=== PATIENT | male | born 1925 | race Caucasian/White ===

== ENCOUNTER → 2016-05-20 | Day surgery (SDC) | payer MEDICARE ==
[~2016-05-20] MED LIST: ADVAIR 2501 DISK W/D; AMLODIPINE BESYL5 MG PO; ASPIRIN81 M1 PO; ASPIRIN81 M2 PO; ASPIRIN81 MG PO; COMBIVENT INH14.7 GM; COMBIVENT RESPIM4 GM IH; COMBIVENT U/D3 ML INH; COMBIVENT14.7 GM INH; DYAZIDE 371 CAP 37.5 PO; FLOMAX0.4 M1 PO; IRON 65 MG; IRON325 ( 652 PO; LEVOTHYROXINE75 MCG PO; LOPRESSOR PO; METOPROLOL SUCC25 MG PO; METOPROLOL TART25 MG PO; MULTAQ400 M1 PO; MULTAQ400 MG PO; PYRIDIUM100 MG PO; SEREVENT D50 MCG/DIS PO; SYNTHROID75 MCG PO; TRIAMTERENE-HCT1 TA6 PO; TRIAMTERENE-HCT1 TA8 PO; VITAMIN B-12250 MCG PO; VITAMIN B12 DAILY; VITAMIN C DAILY; VITAMIN C100 MG PO; ZYLOPRIM100 MG PO
--- NOTE | ~2016-05-20 | OR ---
Unit #: [id number] #: [id number] Patient: SELMA ORNELAS [id number] [address] [place], [place] [address] [id number] MR#: [id number] NAME: SELMA ORNELAS. ROOM: Date of Procedure: 05/20/2016 Admission Date: 05/20/2016 Surgeon: Efren Villagomez M.D. : 1925 Attending Physician: Efren Villagomez M.D. Referring Physician: Efren Villagomez M.D. Primary Care Physician: Lilian Nava A.P.R.N. 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 PROCEDURES PERFORMED Cystoscopy, urethral dilation, Councill catheter placement. ANESTHESIA General. INDICATIONS FOR PROCEDURE This 89-year-old man with a history of recurrent high-grade bladder cancer, status post BCG with no recent evidence of disease on maintenance therapy, did require cystoscopy and fulguration at [facility] last August, but has otherwise done well until, inability to place a cystoscope on most recent followup. DESCRIPTION OF PROCEDURE The patient was given satisfactory general anesthesia and preoperative antibiotics. He was positioned in dorsal lithotomy. The genitalia were prepped and draped. The 17-Cypriot cystoscope was introduced with the 30-degree lens and video. The anterior urethra was normal up to the short-segment bulbar membranous stricture, which was red and very fibrotic with no viable mucosa. An attempt to pass a guidewire was unsuccessful. While asking for a Pollack catheter, I was able with gentle force to place the beak of the 17-Cypriot scope in the correct direction to open the stricture. Once in the bladder, after emptying the urine, the bladder was examined with 30 and 70 degree lenses and was wonderfully well healed in all directions notable only for smooth scarring and normal symmetric orifices. There were no new lesions or suspicious areas or even focal hypervascularity. At this point, I left only a guidewire and advanced S-dilators sizes 18 and 20 very easily, after which I then placed a 22-Cypriot cystoscope sheath with its obturator alongside of the guidewire. That dilated easily also, but seem to be the maximum appropriate dilation. I looked again with the 19-Cypriot scope and showed that rather than a smooth dilation, Unit #: [id number] #: [id number] Patient: SELMA ORNELAS the stricture had more or less torn superficially at the 12 o'clock position almost similar to an urethrotomy, but more shallowly. A 20-Cypriot Councill catheter was snugly advanced through this into the bladder to complete the procedure. The patient will be discharged to have his catheter removed in 1 week and will keep continue 3-month surveillance cystoscopy followup, possibly with continued maintenance BCG at that point. Dictated by... aNm Rodriguez/jasbir TD: 05/21/2016 05:06 JOB #: [id number] CC: Kedar Smith M.D. OPERATIVE REPORT X Efren Villagomez MD X PROCEDURE OPERATIVE NOTE
--- NOTE | ~2016-05-20 | EKG ---
PATIENT: SELMA ORNELAS UNIT #: [id number] Ventricular Rate: 56 BPM Atrial Rate: 56 BPM P-R Interval: 250 ms QRS Duration: 110 ms Q-T Interval: 488 ms QTC Calculation(Bezet): 470 ms P [place]: -22 degrees Calculated R [place]: -29 degrees Calculated T [place]: 106 degrees Diagnosis Line: Sinus bradycardia with 1st degree A-V block Diagnosis Line: ST and T wave abnormality, consider anterolateral Diagnosis Line: ischemia Diagnosis Line: Prolonged QT Diagnosis Line: Abnormal ECG Diagnosis Line: When compared with ECG of 20-AUG-2015 12:00, Diagnosis Line: No significant change was found Diagnosis Line: Confirmed by BRAD AGARWAL MD ([id number]) on 05/23/2016 Diagnosis Line: 7:21:50 AM INTERPRETING MD: ANY PERAZA
[2016-05-20 12:11] LABS: HEMOGLOBIN 12.4 gm/dL (13.0-16.0); MEAN CELL VOLUME 85.8 FL (83-96); MEAN CORPUSCULAR HEMOGLOBIN 28.1 PG (28-34); MEAN CORPUSCULAR HGB CONC 32.7 g/dL (30-36); MEAN PLATELET VOLUME 7.8 FL (6.5-11.5); RED BLOOD COUNT 4.43 X10e (3.90-5.60); RED CELL DISTRIBUTION WIDTH 16.8 % (11.0-15.5); WHITE BLOOD COUNT 7.8 X10e3 (4.0-10.5)
[2016-05-20 12:39] LABS: BLOOD UREA NITROGEN 26 mg/dL (9-23); BUN/CREATININE RATIO 21.66; CALCIUM SERUM 9.4 mg/dL (8.4-10.2); CARBON DIOXIDE 28 mmol/L (22-31); CHLORIDE 103 mmol/L (100-111); CREATININE SERUM 1.2 mg/dL (0.6-1.4); GLOM FILT RATE Estimated ABOVE60 mL/min (>60); GLUCOSE FASTING 97 mg/dL (70-110); POTASSIUM 3.8 mmol/L (3.5-5.1); SODIUM 139 mmol/L (135-145)
== END | disposition home or self-care (01) ==
LOC: CSUR 11:32
PROVIDERS: Urology
DX: N35.9 Urethral stricture, unspecified (principal); I10 Essential (primary) hypertension; J44.9 Chronic obstructive pulmonary disease, unspecified; Z85.51 Personal history of malignant neoplasm of bladder; Z92.3 Personal history of irradiation; Z85.118 Personal history of other malignant neoplasm of bronchus and lung; Z85.46 Personal history of malignant neoplasm of prostate; Z86.73 Personal history of transient ischemic attack (TIA), and cerebral infarction without residual deficits; Z88.5 Allergy status to narcotic agent; Z79.82 Long term (current) use of aspirin; Z79.899 Other long term (current) drug therapy; Z90.89 Acquired absence of other organs; Z98.890 Other specified postprocedural states
CPT/HCPCS: 80048; 85027; 93005; J0690